=== PATIENT | female | born 1975 | race Caucasian/White ===

== ENCOUNTER 2022-10-28 11:42 | Outpatient (CLI) | payer BC ==
[~2022-10-28] VITALS: Ht 165.1 cm; Wt 72.1 kg
[2022-10-28 12:06] VITALS: BP 130/90; PULSE 59; TEMP 98.3
[2022-10-28] MEDS ORDERED: LEXAPRO 10MG10 MG PO (12:17)
[2022-10-28] MEDS ORDERED: XANAX .25M0.25 MG/TA PO (12:18)
[2022-10-28 14:26] VITALS: BP 124/78; PULSE 50
--- NOTE | 2022-10-28 15:00 | NUR ---
PT DISCHARGE INSTRUCTIONS REVIEWED. PT STATES UNDERSTANDING. IV REMOVED. PT ACCOMPANIED TO ELEVATOR AMBULATING STEADILY, RESP EVEN AND UNLABORED
== END 2022-10-28 15:00 | disposition home or self-care (01) ==
LOC: COL.CAR 11:42
DX: R55 Syncope and collapse (principal)